=== PATIENT | male | born 1985 | race Caucasian/White ===

== ENCOUNTER 2019-06-24 18:17 | Emergency (ER) | payer SELFPAY ==
--- NOTE | 2019-06-24 19:10 | EDM.PDOC ---
ED HPI GENERAL MEDICAL PROBLEM - General Chief Complaint: ENT Problem Stated Complaint: TOOTH PAIN Time Seen by Provider: 06/24/19 19:15 Source of Information: Reports: Patient History Limitations: Reports: No Limitations - History of Present Illness Onset: Gradual Onset Date: 06/20/19 Duration: Day(s): (4) Location: Reports: Other (dental pain) Quality: Reports: Ache, Sharp (when eating rates pain at 5 or 6) Severity: Moderate (when eating or at night pain is the worst.) Improves with: Reports: Medication Worsens with: Reports: Cold Therapy, Eating, Heat Therapy Context: Reports: Other (dental caries) Associated Symptoms: Reports: No Other Symptoms tooth Pain Score (Numeric/FACES): 5 - Related Data Allergies Allergy/AdvReac Type Severity Reaction Status Date / Time ketorolac [From Toradol] Allergy Hives Verified 06/24/19 19:14 Home Meds: Home Meds NK [No Known Home Meds] 06/24/19 [History] Social & Family History - Living Situation & Occupation Living situation: Reports: with Family Occupation: Employed (lives in [place] with family.) ED ROS ENT - Review of Systems Review Of Systems: See Below Constitutional: Reports: Other (dental pain no other concerns.) HEENT: Reports: Dental Pain, Ear Pain (right ear pain with eating and has hx of clenching teeth and eating ice.) Respiratory: Reports: No Symptoms Cardiovascular: Reports: No Symptoms Musculoskeletal: Reports: No Symptoms Skin: Reports: No Symptoms Neurological: Reports: Headache (at his current job - gets heaches from the noise) Psychiatric: Reports: No Symptoms Hematologic/Lymphatic: Reports: No Symptoms Immunologic: Reports: No Symptoms ED EXAM, ENT - Physical Exam Exam: See Below Exam Limited By: No Limitations General Appearance: Alert, WD/WN, No Apparent Distress Eye Exam: Bilateral Eye: EOMI, Normal Inspection, PERRL Ears: Normal External Exam, Normal Canal, Hearing Grossly Normal, Normal TMs, TM Erythema (right TM with mild erythema and fluid) Nose: Normal Inspection Mouth/Throat: Normal Lips, Normal Oropharynx, Dental Pain (multi cracked teeth, left upper molar with decay to gum line, right lower molar with large cavity and pain -edema present. multi teeth in poor condition.), Dental Tenderness Head: Atraumatic, Normocephalic Neck: Normal Inspection, Supple, Non-Tender, Full Range of Motion Respiratory/Chest: No Respiratory Distress Skin: Warm, Dry, Intact, Normal Color Lymphatic: Other (reports pain with palpation of lymph glands. no adenopathy present) Course - Vital Signs Last Recorded V/S: Last Vital Signs Temp 36.4 C 06/24/19 19:17 Pulse 76 06/24/19 19:17 Resp 16 06/24/19 19:17 BP 132/71 06/24/19 19:17 Pulse Ox 96 06/24/19 19:17 Departure - Departure Time of Disposition: 19:31 Disposition: Home, Self-Care 01 Condition: Good Clinical Impression: Fracture of tooth, Dental caries, Pain, dental - Discharge Information *PRESCRIPTION DRUG MONITORING PROGRAM REVIEWED*: Yes (noted Tramadol in the past month) *COPY OF PRESCRIPTION DRUG MONITORING REPORT IN PATIENT TIEN: No Instructions: Diet and Dental Disease Referrals: PCP,None [Primary Care Provider] - Forms: ED Department Discharge Care Plan Goals: Dental Pain -medication Penicillin 500mg take 4 times a day til gone #40 -medication for pain Tramadol 50mg one every 4 to 6 hours as needed for pain #15 -follow up in Dental when appointments are available. Return to ER or Clinic if has increased pain, fever, facial swelling, not improved or any concerns Sepsis Event Note - Focused Exam Vital Signs: Vital Signs Temp Pulse Resp BP Pulse Ox 06/24/19 19:17 36.4 C 76 16 132/71 96 06/24/19 19:09 36.4 C 76 16 132/71 96 Date Exam was Performed: 06/24/19 Time Exam was Performed: 19:35 - Problem List & Annotations (1) Pain, dental SNOMED Code(s): 01552022 Code(s): K08.89 - OTHER SPECIFIED DISORDERS OF TEETH AND SUPPORTING STRUCTURES Status: Acute Priority: High Current Visit: Yes - Problem List Review Problem List Initiated/Reviewed/Updated: Yes - Assessment/Plan Plan: Dental Pain -medication Penicillin 500mg take 4 times a day til gone #40 -medication for pain Tramadol 50mg one every 4 to 6 hours as needed for pain #15 -follow up in Dental when appointments are available. Return to ER or Clinic if has increased pain, fever, facial swelling, not improved or any concerns
== END 2019-06-24 19:40 | disposition home or self-care (01) ==
LOC: JP.ED 18:17
DX: K03.81 Cracked tooth (principal); K02.9 Dental caries, unspecified; Z88.6 Allergy status to analgesic agent
CPT/HCPCS: 99282; 99283

== ENCOUNTER 2019-09-08 13:39 | Emergency (ER) | payer SELFPAY ==
--- NOTE | 2019-09-08 14:12 | EDM.PDOC ---
<EldonRachel M - Last Filed: 09/08/19 14:07> ED HPI GENERAL MEDICAL PROBLEM - General Chief Complaint: ENT Problem Stated Complaint: TEETH INFECTED Time Seen by Provider: 09/08/19 14:07 Source of Information: Reports: Patient, RN, RN Notes Reviewed History Limitations: Reports: No Limitations - History of Present Illness INITIAL COMMENTS - FREE TEXT/NARRATIVE: Pt here today with continuing dental pain to bottom lower right decayed/broken molar and upper left back molar decayed. will have dental insurance in next week once 90 days has elapsed at new job. Indicates will seek dentist once insurance in effect. Onset: Gradual Duration: Week(s):, Getting Worse Location: Reports: Other (teeth ) Quality: Reports: Ache, Throbbing Improves with: Reports: Medication Worsens with: Reports: Cold Therapy, Eating Associated Symptoms: Reports: Headaches tooth pain Pain Score (Numeric/FACES): 7 - Related Data Allergies Allergy/AdvReac Type Severity Reaction Status Date / Time ketorolac [From Toradol] Allergy Hives Verified 09/08/19 13:51 Home Meds: Home Meds NK [No Known Home Meds] 06/24/19 [History] Past Medical History - Past Health History Medical/Surgical History: Denies Medical/Surgical History Musculoskeletal History: Reports: Other (See Below) Other Musculoskeletal History: carpal tunnel - Past Surgical History Musculoskeletal Surgical History: Reports: Arthroscopic Knee Social & Family History - Tobacco Use Smoking Status *Q: Current Every Day Smoker Years of Tobacco use: 15 Packs/Tins Daily: 0.5 - Caffeine Use Caffeine Use: Reports: Coffee, Energy Drinks, Soda, Tea - Recreational Drug Use Recreational Drug Use: No - Living Situation & Occupation Living situation: Reports: with Family Occupation: Employed (lives in [place] with family.) ED ROS ENT - Review of Systems Review Of Systems: See Below Constitutional: Reports: No Symptoms HEENT: Reports: Other (decayed teeth ) Respiratory: Reports: No Symptoms Cardiovascular: Reports: No Symptoms Endocrine: Reports: No Symptoms GI/Abdominal: Reports: No Symptoms : Reports: No Symptoms Musculoskeletal: Reports: No Symptoms Skin: Reports: No Symptoms Neurological: Reports: No Symptoms Psychiatric: Reports: No Symptoms Hematologic/Lymphatic: Reports: No Symptoms Immunologic: Reports: No Symptoms ED EXAM, ENT - Physical Exam Exam: See Below Exam Limited By: No Limitations General Appearance: Alert, WD/WN Mouth/Throat: Normal Inspection, Normal Lips, Dental Pain, Dental Tenderness Head: Normocephalic Neck: Normal Inspection Respiratory/Chest: No Accessory Muscle Use (Male) Exam: Deferred Rectal (Males) Exam: Deferred Extremities: Normal Inspection Neurological: Alert, Oriented, CN II-XII Intact, Normal Cognition Psychiatric: Normal Affect, Normal Mood Course - Re-Assessments/Exams Free Text/Narrative Re-Assessment/Exam: 09/08/19 14:09 Examine pt related to teeth pain bottom R molar and top left molar Departure - Departure Time of Disposition: 14:12 Disposition: Home, Self-Care 01 Condition: Good Clinical Impression: Pain, dental, Pain due to dental caries, Dental caries - Discharge Information *PRESCRIPTION DRUG MONITORING PROGRAM REVIEWED*: Not Applicable *COPY OF PRESCRIPTION DRUG MONITORING REPORT IN PATIENT TIEN: Not Applicable Instructions: Preventive Dental Care, Adult Referrals: PCP,None [Primary Care Provider] - Forms: ED Department Discharge Additional Instructions: Please continue to take home medication such as Ibuprofen. Follow prescriber instructions on Tramadol and the antibiotics given today. Make an appointment with dentist to have an appointment ready once insurance is valid. Sepsis Event Note (ED) - Evaluation Sepsis Screening Result: No Definite Risk - Problem List & Annotations (1) Pain due to dental caries SNOMED Code(s): 55308479, 81086421 Code(s): K02.9 - DENTAL CARIES, UNSPECIFIED Status: Acute Priority: High - Problem List Review Problem List Initiated/Reviewed/Updated: Yes - Assessment/Plan Plan: Please continue to take home medication such as Ibuprofen. Follow prescriber instructions on Tramadol and the antibiotics given today. Make an appointment with dentist to have an appointment ready once insurance is valid. <Kimo Madera - Last Filed: 09/08/19 15:57> Course - Vital Signs Last Recorded V/S: Last Vital Signs Temp 98.1 F 09/08/19 13:53 Pulse 74 09/08/19 13:53 Resp 14 09/08/19 13:53 BP 138/68 09/08/19 13:53 Pulse Ox 99 09/08/19 13:53 Sepsis Event Note (ED) - Focused Exam Vital Signs: Vital Signs Temp Pulse Resp BP Pulse Ox 09/08/19 13:53 98.1 F 74 14 138/68 99 09/08/19 13:50 98.1 F 74 14 138/ 99 Attestation - Student - Attestation Statement Attestation Statement: I personally performed or re-performed the physical examination and medical decision making. I have verified all student documentation or findings, including history, physical exam and/or medical decision making.
== END 2019-09-08 14:23 | disposition home or self-care (01) ==
LOC: JP.ED 13:39
DX: K02.9 Dental caries, unspecified (principal); F17.210 Nicotine dependence, cigarettes, uncomplicated; Z88.6 Allergy status to analgesic agent
CPT/HCPCS: 99282; 99283

== ENCOUNTER 2019-11-22 12:01 | Emergency (ER) | payer SELFPAY ==
--- NOTE | 2019-11-22 13:09 | EDM.PDOC ---
ED HPI GENERAL MEDICAL PROBLEM - General Chief Complaint: Abdominal Pain Stated Complaint: PAIN ON LOWER MALE AREA WAS INJURED Time Seen by Provider: 11/22/19 13:04 Source of Information: Reports: Patient, RN, RN Notes Reviewed - History of Present Illness INITIAL COMMENTS - FREE TEXT/NARRATIVE: Pt here with increased lower abd pain and ecchymotic penis. Was at work a few nights ago and a metal lip from conveyor hit pt in abd low pelvis. Immediate pain lasting 15-20 minutes. The next morning pt work and urinated and notices ecchymotic penis and abd pain that is low in pelvis and radiates to BL flanks. Pain is intermittent and does not radiate beyong that. Fullness is described as what he feels. Right Pelvic Pain Score (Numeric/FACES): 6 - Related Data Allergies Allergy/AdvReac Type Severity Reaction Status Date / Time ketorolac [From Toradol] Allergy Hives Verified 11/22/19 12:43 Home Meds: Home Meds NK [No Known Home Meds] 06/24/19 [History] Past Medical History - Past Health History Medical/Surgical History: Denies Medical/Surgical History Musculoskeletal History: Reports: Fracture, Other (See Below) Other Musculoskeletal History: carpal tunnel - Infectious Disease History Infectious Disease History: Reports: Chicken Pox - Past Surgical History GI Surgical History: Reports: Other (See Below) Other GI Surgeries/Procedures: varicose veins on pelvis and scrotum repaired at age 11. Musculoskeletal Surgical History: Reports: Arthroscopic Knee Social & Family History - Tobacco Use Smoking Status *Q: Light Tobacco Smoker Years of Tobacco use: 15 Packs/Tins Daily: 0.2 - Caffeine Use Caffeine Use: Reports: Coffee, Energy Drinks - Recreational Drug Use Recreational Drug Use: No - Living Situation & Occupation Living situation: Reports: with Family Occupation: Employed (lives in [place] with family.) ED ROS GENERAL - Review of Systems Review Of Systems: See Below Constitutional: Reports: No Symptoms HEENT: Reports: No Symptoms Respiratory: Reports: No Symptoms Cardiovascular: Reports: No Symptoms Endocrine: Reports: No Symptoms GI/Abdominal: Reports: Abdominal Pain : Reports: Flank Pain, Other (Ecchymotic penis) Musculoskeletal: Reports: No Symptoms Skin: Reports: Bruising (Penis) Neurological: Reports: No Symptoms Psychiatric: Reports: No Symptoms Hematologic/Lymphatic: Reports: No Symptoms Immunologic: Reports: No Symptoms ED EXAM, GI/ABD - Physical Exam Exam: See Below Exam Limited By: No Limitations General Appearance: Alert, WD/WN, Mild Distress Head: Normocephalic Neck: Normal Inspection Respiratory/Chest: No Respiratory Distress, Lungs Clear Cardiovascular: Regular Rate, Rhythm (Male) Exam: Suprapubic Fullness, Other (Ecchymotic penis ) Rectal (Males) Exam: Deferred Neurological: Alert, Oriented, CN II-XII Intact Psychiatric: Normal Affect Skin Exam: Warm, Dry, Ecchymosis (Penis ) Course - Vital Signs Last Recorded V/S: Last Vital Signs Temp 36.7 C 11/22/19 12:42 Pulse 63 11/22/19 14:47 Resp 14 11/22/19 14:47 BP 123/82 11/22/19 14:47 Pulse Ox 99 11/22/19 14:47 - Orders/Labs/Meds Orders: Active Orders 24 hr Category Date Time Status UA W/MICROSCOPIC [URIN] Urgent Lab 11/22/19 14:48 Ordered Iopamidol [Isovue-300 (61%)] Med 11/22/19 14:30 Active 130 ml IV . DIRECTED Sodium Chloride 0.9% [Saline Flush] Med 11/22/19 14:21 Active 10 ml FLUSH ONETIME PRN Medication Orders Iopamidol (Isovue-300 (61%)) 130 ml IV . DIRECTED [facility] Last Admin: 11/22/19 14:32 Dose: 130 ml Documented by: HEBER Sodium Chloride (Saline Flush) 10 ml FLUSH ONETIME PRN PRN Reason: PER RADIOLOGY PROTOCOL Last Admin: 11/22/19 14:32 Dose: 10 ml Documented by: HEBER Labs: Laboratory Tests 11/22/19 11/22/19 11/22/19 Range/Units 13:12 13:12 13:12 WBC 7.0 (4.5-11.0) K/uL RBC 4.45 (4.30-5.90) M/uL Hgb 13.5 (12.0-15.0) g/dL Hct 42.0 (40.0-54.0) % MCV 94 (80-98) fL MCH 30 (27-31) pg MCHC 32 (32-36) % Plt Count 236 (150-400) K/uL Neut % (Auto) 70 H (36-66) % Lymph % (Auto) 20 L (24-44) % Glenn % (Auto) 6 (2-6) % Eos % (Auto) 4 (2-4) % Baso % (Auto) 0 (0-1) % Sodium 142 (140-148) mmol/L Potassium 4.2 (3.6-5.2) mmol/L Chloride 107 (100-108) mmol/L Carbon Dioxide 25 (21-32) mmol/L Anion Gap 10.1 (5.0-14.0) mmol/L BUN 15 (7-18) mg/dL Creatinine 1.0 (0.8-1.3) mg/dL Est Cr Clr Drug Dosing 113.17 mL/min Estimated GFR (MDRD) > 60 (>60) Glucose 88 (74-106) mg/dL Calcium 8.5 (8.5-10.1) mg/dL Total Bilirubin 0.4 (0.2-1.0) mg/dL AST 13 L (15-37) U/L ALT 22 (12-78) U/L Alkaline Phosphatase 90 (46-116) U/L C-Reactive Protein 0.12 (0.0-0.3) mg/dL Total Protein 7.2 (6.4-8.2) g/dL Albumin 3.9 (3.4-5.0) g/dL Globulin 3.3 (2.3-3.5) g/dL Albumin/Globulin Ratio 1.2 (1.2-2.2) Meds: Medications Generic Name Dose Route Start Last Admin Trade Name Freq PRN Reason Stop Dose Admin Iopamidol 130 ml 11/22/19 14:30 11/22/19 14:32 Isovue-300 (61%) IV 130 ml . DIRECTED MARIZA Administration Sodium Chloride 10 ml 11/22/19 14:21 11/22/19 14:32 Saline Flush FLUSH 10 ml ONETIME PRN Administration PER RADIOLOGY PROTOCOL Discontinued Medications Generic Name Dose Route Start Last Admin Trade Name Freq PRN Reason Stop Dose Admin Fentanyl 50 mcg 11/22/19 14:23 11/22/19 14:45 Sublimaze IVPUSH 11/22/19 14:24 50 mcg ONETIME ONE Administration Sodium Chloride 80 mls @ 3 mls/sec 11/22/19 14:21 11/22/19 14:32 Normal Saline IV 11/22/19 14:22 3 mls/sec ONETIME ONE Administration Departure - Departure Time of Disposition: 14:59 Disposition: Home, Self-Care 01 Condition: Good Clinical Impression: Superficial bruising of abdominal wall Qualifiers: Encounter type: initial encounter Qualified Code(s): S30.1XXA - Contusion of abdominal wall, initial encounter - Discharge Information *PRESCRIPTION DRUG MONITORING PROGRAM REVIEWED*: Not Applicable *COPY OF PRESCRIPTION DRUG MONITORING REPORT IN PATIENT TIEN: Not Applicable Instructions: Abdominal Pain, Adult, [id number], How to Use Cold Therapy, [id number], Pain Medicine Instructions, [id number] Referrals: PCP,None [Primary Care Provider] - Forms: ED Department Discharge Additional Instructions: All of the lab work for today including the cat scan are well within normal limits. Please get plenty of rest and stay hydrated. Take pain medication as prescribed. You may use ice or heat for comfort to abdomen. May stay home a few days if needed. Should the pain increase or any other symptoms, please come back to the ER or see your provider. Sepsis Event Note (ED) - Evaluation Sepsis Screening Result: No Definite Risk - Focused Exam Vital Signs: Vital Signs Temp Pulse Resp BP Pulse Ox 11/22/19 14:47 63 14 123/82 99 11/22/19 12:42 36.7 C 55 L 16 111/53 L 97 11/22/19 12:37 36.7 C 55 L 16 111/53 L 97 - Problem List Review Problem List Initiated/Reviewed/Updated: Yes - Assessment/Plan Plan: All of the lab work for today including the cat scan are well within normal limits. Please get plenty of rest and stay hydrated. Take pain medication as prescribed. You may use ice or heat for comfort to abdomen. May stay home a few days if needed. Should the pain increase or any other symptoms, please come back to the ER or see your provider.
[2019-11-22] MEDS ORDERED: Sodium Chloride 0.9% 80 ML IV ONE (14:21)
[2019-11-22] MEDS ORDERED: Sodium Chloride 0.9% 10 ML Syringe FLUSH PRN (14:21)
[2019-11-22] MEDS ORDERED: fentaNYL 100 MCG/2 ML SDV IVPUSH ONE (14:23)
[2019-11-22] MEDS ORDERED: Iopamidol 612 MG/ML 150 ML Bottle IV SCH (14:30)
--- NOTE | 2019-11-22 14:51 | CT ---
Abdomen Pelvis w Cont CLINICAL HISTORY: Abdominal trauma COMPARISON: None. TECHNIQUE: Transverse scans were obtained from the base of the lungs to the pubic symphysis following oral contrast and IV infusion of contrast.Auto dosage reduction and iterative reconstructiontechniques employed. FINDINGS: The lung bases are clear. The liver shows no mass or biliary dilatation. The gallbladder has a normal contour. The spleen has a normal size and shape. There are 2 small splenules. The pancreas shows no mass or inflammatory change. The adrenal glands appear normal bilaterally . The kidneys are free of mass or hydronephrosis. There is a 6 mm nonobstructing calculus in the lower pole right kidney. The ureters have normal course and caliber. The bladder has a normal contour. The aorta has a normal contour. There is no suspicious retroperitoneal adenopathy. Abdominal pelvic fat planes and low pelvic side dutta are well demarcated. Small intestinal configuration is nonacute. IMPRESSION: No acute intra-abdominal or intrapelvic process 6 mm stone lower pole right kidney
== END 2019-11-22 15:13 | disposition home or self-care (01) ==
LOC: JP.ED 12:01
DX: S30.1XXA Contusion of abdominal wall, initial encounter (principal); S30.21XA Contusion of penis, initial encounter; Z88.6 Allergy status to analgesic agent; F17.210 Nicotine dependence, cigarettes, uncomplicated; W22.8XXA Striking against or struck by other objects, initial encounter; Y99.0 Civilian activity done for income or pay
CPT/HCPCS: 36415; 74177; 80053; 81001; 85025; 86140; 96374; 99284; J3010; Q9967

== ENCOUNTER 2020-09-07 23:33 | Emergency (ER) | payer BC ==
--- NOTE | 2020-09-08 00:15 | EDM.PDOC ---
ED HPI GENERAL MEDICAL PROBLEM - General Chief Complaint: General Stated Complaint: MEDICAL VIA OHIOPYLE Time Seen by Provider: 09/07/20 23:59 Source of Information: Reports: Patient, EMS History Limitations: Reports: No Limitations - History of Present Illness INITIAL COMMENTS - FREE TEXT/NARRATIVE: Davey is a 34-year-old male presenting to the ED via [facility] from [facility] for evaluation of increased anxiety and panic attack. Patient reports he has had a lifelong history of anxiety since his father when he was 11 years old. He states that he thinks about every day and is terrified of it. He recently regained custody of his 4 kids and has been working overtime at his job to be able to pay for everything. He is also in the process of buying a new residence where his children and he can live. He reports that several days ago he took his kids to [facility] and they were playing on the beach when he started to develop anxiety, hyperventilation, numbness and tingling, shortness of breath, and eventually was taken to the emergency room at [place] where he was found to have an elevated troponin at 0.031 with a normal EKG. They kept him in the emergency room and checked a delta troponin with a repeat troponin going up to 0.056 and felt that he was needing to be admitted to rule out an non-ST elevated PR. Ultimately, the patient was put on alprazolam for his anxiety and was discharged the next morning with a peak of his troponin at 0.060 and again no EKG abnormalities. The hospitalist told him that he probably had type II NSTEMI due to cardiac demand ischemia secondary to panic attack. The patient was given 3 days of alprazolam which he used the last dose of this morning before going to work this evening. At work tonight he started to develop similar symptoms again with some shortness of breath, difficulty breathing, some blurring of his vision and he went to the person who commented that he was quite pale and should probably go to the hospital to be checked out. This further exacerbated his anxiety. EMS performed a twelve-lead prior to arrival which I have reviewed. There is no evidence for any significant ST elevation or depression. In discussion with the patient, he did undergo some psychological therapy between ages 11 and 14 and at that time was placed on a variety of medications, however, he did not follow through with them because they all made him tired. He states in his current state that he would be open to the idea of starting a mood stabilizer that may help keep his anxiety under control. The patient states that although he feels overwhelmed, he is not homicidal or suicidal, the other thing complicating the picture is that he is only sleeping about 3 hours a day as he works from 5 PM to 5 AM. He then goes home and finally falls asleep around 6:30 AM and sleeps until 9 AM when his youngest daughter who is a year and a half wakes up and then is up with her until she takes a nap in the afternoon which is usually only an hour long and then he returns to work at 5 PM and the cycle continues over. This certainly is contributing to his anxiety and mental health. - Related Data Allergies Allergy/AdvReac Type Severity Reaction Status Date / Time ketorolac [From Toradol] Allergy Hives Verified 09/07/20 23:38 Home Meds: Home Meds ALPRAZolam [Alprazolam] 0.25 mg PO TID 09/07/20 [History] PARoxetine [Paxil] 10 mg PO DAILY #30 tab 09/08/20 [Rx] Past Medical History - Past Health History Medical/Surgical History: Denies Medical/Surgical History Genitourinary History: Reports: Renal Calculus Musculoskeletal History: Reports: Fracture, Other (See Below) Other Musculoskeletal History: carpal tunnel Neurological History: Reports: Seizure Psychiatric History: Reports: ADHD, Anxiety, Depression, Emotional Problems, Panic Attack - Infectious Disease History Infectious Disease History: Reports: Chicken Pox, Shingles - Past Surgical History GI Surgical History: Reports: Other (See Below) Other GI Surgeries/Procedures: varicose veins on pelvis and scrotum repaired at age 11. Musculoskeletal Surgical History: Reports: Arthroscopic Knee Social & Family History - Tobacco Use Tobacco Use Status *Q: Current Every Day Tobacco User Years of Tobacco use: 15 Packs/Tins Daily: 1 - Caffeine Use Caffeine Use: Reports: Coffee, Energy Drinks - Recreational Drug Use Recreational Drug Use: Yes Drug Use in Last 12 Months: No - Living Situation & Occupation Living situation: Reports: with Family Occupation: Employed (lives in [place] with family.) ED ROS GENERAL - Review of Systems Review Of Systems: See Below Constitutional: Reports: Other (Fractured sleep with very limited amount of sleep each day) HEENT: Reports: Vision Change (Vision changes when the patient becomes more anxious) Respiratory: Reports: Shortness of Breath (1 anxious) Cardiovascular: Reports: Palpitations (Tachycardia when anxious. Patient also has had episodes of hypertension related to his anxiety.) Endocrine: Reports: Fatigue GI/Abdominal: Reports: No Symptoms : Reports: No Symptoms Musculoskeletal: Reports: No Symptoms Skin: Reports: Pallor (Pallor there was commented on by the human resource person at work tonight), Diaphoresis (Tonight while the patient was anxious) Neurological: Reports: Dizziness, Numbness, Tingling Psychiatric: Reports: Anxiety. Denies: Homicidal Ideation, Suicidal Ideation Hematologic/Lymphatic: Reports: No Symptoms Immunologic: Reports: No Symptoms ED EXAM, GENERAL - Physical Exam Exam: See Below Exam Limited By: No Limitations General Appearance: Alert, No Apparent Distress, Anxious Eye Exam: Bilateral Eye: EOMI, PERRL Throat/Mouth: Normal Inspection, Normal Lips, Normal Oropharynx, Normal Voice, No Airway Compromise Head: Atraumatic, Normocephalic Neck: Normal Inspection, Supple Respiratory/Chest: No Respiratory Distress, Lungs Clear, Normal Breath Sounds Cardiovascular: Normal Peripheral Pulses, Regular Rate, Rhythm, No Murmur Peripheral Pulses: 2+: Radial (L), Radial (R) GI/Abdominal: Normal Bowel Sounds, Soft, Non-Tender Back Exam: Normal Inspection, Full Range of Motion Extremities: Normal Inspection, Normal Range of Motion, Normal Capillary Refill Neurological: Alert, Oriented, Normal Cognition, No Motor/Sensory Deficits Psychiatric: Anxious Skin Exam: Warm, Dry, Intact, Normal Color Lymphatic: No Adenopathy Course - Vital Signs Last Recorded V/S: Last Vital Signs Temp 36.7 C 09/07/20 23:41 Pulse 85 09/07/20 23:48 Resp 15 09/07/20 23:48 BP 139/77 09/07/20 23:48 Pulse Ox 99 09/07/20 23:48 - Orders/Labs/Meds Orders: Active Orders 24 hr Category Date Time Status UA W/MICROSCOPIC [URIN] Stat Lab 09/08/20 00:44 Ordered Labs: Laboratory Tests 09/08/20 09/08/20 09/08/20 Range/Units 00:23 00:23 00:43 WBC 5.9 (4.5-11.0) K/uL RBC 3.92 L (4.30-5.90) M/uL Hgb 12.1 (12.0-15.0) g/dL Hct 36.4 L (40.0-54.0) % MCV 93 (80-98) fL MCH 31 (27-31) pg MCHC 33 (32-36) % Plt Count 221 (150-400) K/uL Sodium 145 (140-148) mmol/L Potassium 3.9 (3.6-5.2) mmol/L Chloride 109 H (100-108) mmol/L Carbon Dioxide 31 (21-32) mmol/L Anion Gap 8.9 (5.0-14.0) mmol/L BUN 12 (7-18) mg/dL Creatinine 0.9 (0.8-1.3) mg/dL Est Cr Clr Drug Dosing 124.54 mL/min Estimated GFR (MDRD) > 60 (>60) Glucose 98 (74-106) mg/dL Calcium 8.0 L (8.5-10.1) mg/dL Urine Opiates Screen Negative (NEGATIVE) Ur Oxycodone Screen Negative (NEGATIVE) Urine Methadone Screen Negative (NEGATIVE) Ur Propoxyphene Screen Negative (NEGATIVE) Ur Barbiturates Screen Negative (NEGATIVE) Ur Tricyclics Screen Negative (NEGATIVE) Ur Phencyclidine Scrn Negative (NEGATIVE) Ur Amphetamine Screen Negative (NEGATIVE) U Methamphetamines Scrn Negative (NEGATIVE) Urine MDMA Screen Negative (NEGATIVE) U Benzodiazepines Scrn Negative (NEGATIVE) U Cocaine Metab Screen Negative (NEGATIVE) U Marijuana (THC) Screen Negative (NEGATIVE) - Re-Assessments/Exams Free Text/Narrative Re-Assessment/Exam: 09/08/20 00:53 I reviewed the patient's labs including a CBC, basic metabolic profile, urinalysis and urine tox screen. All of his labs are unremarkable including the urine tox screen. I did review the EKG that was provided by [facility]. I did not repeat it because there was no abnormality seen on the EKG and the patient is not complaining of any cardiac symptoms beyond his anxiety. I did review his [facility] medical records from his recent hospitalization in [place] at [place] where he was found to have mild elevation of his troponin likely due to tachycardia and hypertension related to his panic attack. I do not feel that this was a non-STEMI. We did discuss treatment options and I do agree with continuing with a small amount of benzodiazepines to bridge him but feel that he probably would benefit from an SSRI like Paxil. 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 I did provide him with an [facility] prescription for lorazepam 1 mg twice daily as needed anxiety total of 10 tablets. Patient is scheduled to see Harjeet Pagan CNP next week for further evaluation of his anxiety and hopefully Harjeet can get him into a psychologist that does cognitive behavioral therapy. Departure - Departure Time of Disposition: 00:57 Disposition: Home, Self-Care 01 Clinical Impression: Generalized anxiety disorder with panic attacks - Discharge Information Instructions: Generalized Anxiety Disorder, Adult, Panic Attack Referrals: PCP,None [Primary Care Provider] - Forms: ED Department Discharge Care Plan Goals: I am starting you out on an antidepressant that we commonly use for generalized anxiety disorder called Paxil. It is 1 tablet daily. I am also going to send you home with a small amount of lorazepam to use 1 year panic attacks are coming full on. Please use this sparingly and no more than twice a day. The hope is that in the next week or 2 the Paxil start to make him difference in you will no longer need the lorazepam. Please keep your appointment with Harjeet Pagan next week. He can help arrange for cognitive behavioral therapy and continue to manage medication to keep your anxiety under better control. Try to get more than 3 hours a day of sleep. Usually the body requires at least 5 hours a day to "recharge the batteries". Your labs today were unremarkable. Remember to just take it 1 step at a time especially when you start to feel overwhelmed. Sepsis Event Note (ED) - Evaluation Sepsis Screening Result: No Definite Risk - Focused Exam Vital Signs: Vital Signs Temp Pulse Resp BP Pulse Ox 09/07/20 23:48 85 15 139/77 99 09/07/20 23:41 36.7 C 93 17 158/89 H 98 - Problem List & Annotations (1) Generalized anxiety disorder with panic attacks SNOMED Code(s): 55893845 Code(s): F41.1 - GENERALIZED ANXIETY DISORDER; F41.0 - PANIC DISORDER [EPI SODIC PAROXYSMAL ANXIETY] Status: Acute Priority: Medium Current Visit: Yes - Problem List Review Problem List Initiated/Reviewed/Updated: Yes - My Orders Last 24 Hours: My Active Orders 09/08/20 00:44 UA W/MICROSCOPIC [URIN] Stat - Assessment/Plan Last 24 Hours: My Active Orders 09/08/20 00:44 UA W/MICROSCOPIC [URIN] Stat
== END 2020-09-08 01:16 | disposition home or self-care (01) ==
LOC: JP.ED 23:33
DX: F41.0 Panic disorder [episodic paroxysmal anxiety] (principal); F41.1 Generalized anxiety disorder; Z88.5 Allergy status to narcotic agent; Z72.0 Tobacco use; Z79.899 Other long term (current) drug therapy
CPT/HCPCS: 36415; 80048; 80305-QW; 81001; 85027; 99284

== ENCOUNTER 2020-10-05 15:17 | Emergency (ER) | payer BC ==
--- NOTE | 2020-10-05 15:53 | EDM.PDOC ---
ED HPI GENERAL MEDICAL PROBLEM - General Chief Complaint: General Stated Complaint: ANXIETY Time Seen by Provider: 10/05/20 15:35 Source of Information: Reports: Patient History Limitations: Reports: No Limitations - History of Present Illness INITIAL COMMENTS - FREE TEXT/NARRATIVE: 34-year-old male started with chronic anxiety, is getting ongoing treatment from his primary care and psychology, increase Paxil from 10 to 20 mg 6 days ago but is still having a lot of breakthrough anxiety especially at work. Ativan is working well for him but unfortunately he is slowly increasing the amount he is taking. He has taken 20 in the last 7 days. He feels much better after taking the Ativan. Onset: Unknown/Unsure Associated Symptoms: Reports: Shortness of Breath, Other (Gets chest tightness and shortness of breath with the panic attacks) - Related Data Allergies Allergy/AdvReac Type Severity Reaction Status Date / Time ketorolac [From Toradol] Allergy Hives Verified 10/05/20 15:34 Home Meds: Home Meds ALPRAZolam [Alprazolam] 0.25 mg PO TID 09/07/20 [History] PARoxetine [Paxil] 20 mg PO DAILY 10/05/20 [History] Past Medical History - Past Health History Medical/Surgical History: Denies Medical/Surgical History Genitourinary History: Reports: Renal Calculus Musculoskeletal History: Reports: Fracture, Other (See Below) Other Musculoskeletal History: carpal tunnel Neurological History: Reports: Seizure Psychiatric History: Reports: ADHD, Anxiety, Depression, Emotional Problems, Panic Attack - Infectious Disease History Infectious Disease History: Reports: Chicken Pox, Shingles - Past Surgical History GI Surgical History: Reports: Other (See Below) Other GI Surgeries/Procedures: varicose veins on pelvis and scrotum repaired at age 11. Musculoskeletal Surgical History: Reports: Arthroscopic Knee Social & Family History - Tobacco Use Tobacco Use Status *Q: Heavy Tobacco User Years of Tobacco use: 18 Packs/Tins Daily: 0.5 - Caffeine Use Caffeine Use: Reports: Coffee, Energy Drinks - Recreational Drug Use Recreational Drug Use: No - Living Situation & Occupation Living situation: Reports: with Family Occupation: Employed (lives in [place] with family.) ED ROS GENERAL - Review of Systems Review Of Systems: See Below Constitutional: Denies: Fever, Chills HEENT: Reports: No Symptoms Respiratory: Reports: Shortness of Breath (Only when anxious) : Reports: No Symptoms Musculoskeletal: Reports: No Symptoms Neurological: Reports: Headache (He is getting some mild frontal headaches from the Paxil) Psychiatric: Reports: Anxiety ED EXAM, GENERAL - Physical Exam Exam: See Below Exam Limited By: No Limitations General Appearance: Alert, Anxious (Does appear anxious but not agitated, not hyperventilating) Eye Exam: Bilateral Eye: Normal Inspection Respiratory/Chest: No Respiratory Distress, Lungs Clear Cardiovascular: Regular Rate, Rhythm Neurological: Alert, Oriented, No Motor/Sensory Deficits Psychiatric: Anxious (Mildly anxious) Skin Exam: Warm, Dry Course - Vital Signs Last Recorded V/S: Last Vital Signs Temp 97.8 F 10/05/20 15:37 Pulse 82 10/05/20 15:37 Resp 16 10/05/20 15:37 BP 137/82 10/05/20 15:37 Pulse Ox 96 10/05/20 15:37 - Re-Assessments/Exams Free Text/Narrative Re-Assessment/Exam: 10/05/20 15:52 This patient currently has a fairly normal presentation but he just medicated himself with Ativan within the last couple hours. I discussed his situation with his primary provider Harjeet Tipton, and he will be given 10 additional 1 mg Ativan to use through the weekend and follow-up next Friday or Friday in the clinic. Continue with the Paxil 20 mg daily and follow-up as recommended. Departure - Departure Time of Disposition: 16:00 Disposition: Home, Self-Care 01 Clinical Impression: Generalized anxiety disorder with panic attacks - Discharge Information Instructions: Managing Anxiety, Adult Referrals: Harjeet Tipton, [employer] MANAGER [Primary Care Provider] - Forms: ED Department Discharge Care Plan Goals: Try to manage her anxiety with 2 mg of Ativan daily if needed and recheck with Harjeet Tipton next Friday or Friday, call the clinic to make an appointment as he is expecting to see you Sepsis Event Note (ED) - Evaluation Sepsis Screening Result: No Definite Risk - Focused Exam Vital Signs: Vital Signs Temp Pulse Resp BP Pulse Ox 10/05/20 15:37 97.8 F 82 16 137/82 96 10/05/20 15:29 97.8 F 82 16 137/82 96
== END 2020-10-05 16:01 | disposition home or self-care (01) ==
LOC: JP.ED 15:17
DX: F41.0 Panic disorder [episodic paroxysmal anxiety] (principal); Z88.6 Allergy status to analgesic agent; Z72.0 Tobacco use
CPT/HCPCS: 99283

== ENCOUNTER 2021-03-08 05:15 | Emergency (ER) | payer BC | END 2021-03-08 06:39 | disposition home or self-care (01) | LOC: JP.ED 05:15 | DX: F41.1 Generalized anxiety disorder (principal); Z88.6 Allergy status to analgesic agent; Z72.0 Tobacco use | CPT/HCPCS: 99283 ==

== ENCOUNTER 2021-08-18 16:07 | Emergency (ER) | payer BC | END 2021-08-18 18:49 | disposition home or self-care (01) | LOC: JP.ED 16:07 | DX: N12 Tubulo-interstitial nephritis, not specified as acute or chronic (principal); F17.210 Nicotine dependence, cigarettes, uncomplicated; Z88.1 Allergy status to other antibiotic agents; Z79.899 Other long term (current) drug therapy | CPT/HCPCS: 74176; 81001; 87086; 99284 ==

== ENCOUNTER 2022-09-07 18:49 | Emergency (ER) | payer BC, MEDICAID ==
[2022-09-07] MEDS ORDERED: Fluorescein 1 MG Ophth Strip EYEBOTH ONE (19:10)
[2022-09-07] MEDS ORDERED: Proparacaine 0.5% Ophth Soln 15 ML Bottle EYERT ONE (19:10)
[2022-09-07] MEDS ORDERED: Erythromycin Base 0.5% Ophth Oint 1 GM Tube EYEBOTH ONE (19:10)
== END 2022-09-07 19:21 | disposition left against medical advice (07) ==
LOC: JP.ED 18:49
DX: Z53.21 Procedure and treatment not carried out due to patient leaving prior to being seen by health care provider (principal)

== ENCOUNTER 2022-11-06 07:50 | Emergency (ER) | payer OTHER, MEDICAID ==
[2022-11-06] MEDS ORDERED: Bacitracin Oint 1 GM U/D Packet TOP ONE (09:17)
[2022-11-06] MEDS ORDERED: Acetaminophen/HYDROcodone 325-5 MG Tab PO ONE (09:17)
[2022-11-06] MEDS ORDERED: Bacitracin Oint 1 GM U/D Packet ONE (09:47)
== END 2022-11-06 09:56 | disposition home or self-care (01) ==
LOC: JP.ED 07:50
DX: T23.222A Burn of second degree of single left finger (nail) except thumb, initial encounter (principal); F17.210 Nicotine dependence, cigarettes, uncomplicated; X58.XXXA Exposure to other specified factors, initial encounter
CPT/HCPCS: 99283; A9270

== ENCOUNTER 2024-05-05 11:50 | Emergency (ER) | payer MEDICAID | END 2024-05-05 13:10 | disposition home or self-care (01) | LOC: JP.ED 11:50 | DX: K04.7 Periapical abscess without sinus (principal); Z91.048 Other nonmedicinal substance allergy status; Z88.8 Allergy status to other drugs, medicaments and biological substances; Z79.899 Other long term (current) drug therapy; Z87.891 Personal history of nicotine dependence | CPT/HCPCS: 99282 ==

== ENCOUNTER 2024-05-09 09:38 | Emergency (ER) | payer MEDICAID | END 2024-05-09 10:34 | disposition home or self-care (01) | LOC: JP.ED 09:38 | DX: K08.89 Other specified disorders of teeth and supporting structures (principal); Z87.891 Personal history of nicotine dependence; Z79.899 Other long term (current) drug therapy; Z91.048 Other nonmedicinal substance allergy status; Z88.6 Allergy status to analgesic agent | CPT/HCPCS: 99283 ==

== ENCOUNTER 2024-09-01 12:21 | Emergency (ER) | payer MEDICAID | END 2024-09-01 15:09 | disposition home or self-care (01) | LOC: JP.ED 12:21 | DX: K05.10 Chronic gingivitis, plaque induced (principal); K02.9 Dental caries, unspecified; Z79.899 Other long term (current) drug therapy; Z91.048 Other nonmedicinal substance allergy status; Z88.5 Allergy status to narcotic agent | CPT/HCPCS: 99283 ==

== ENCOUNTER 2024-10-10 16:37 | Emergency (ER) | payer MEDICAID | END 2024-10-10 18:53 | disposition home or self-care (01) | LOC: JP.ED 16:37 | DX: M25.561 Pain in right knee (principal); F17.200 Nicotine dependence, unspecified, uncomplicated; Z79.899 Other long term (current) drug therapy; Z88.8 Allergy status to other drugs, medicaments and biological substances; Z86.16 Personal history of COVID-19 | CPT/HCPCS: 73562-26-RT; 73562-RT; 99283 ==